=== PATIENT | male | born 1955 | race Caucasian/White ===

== ENCOUNTER 2019-08-13 00:06 | Observation (INO) | payer MEDICARE, SELFPAY ==
[2019-08-13] VITALS (13 sets, daily range): BP systolic 137–180; BP diastolic 73–94; PULSE 64–112; RESP 14–20; TEMP 36.2–36.6; O2SAT 95–100; BMI 26.7
--- NOTE | ~2019-08-13 | XR_ITS ---
EXAMINATION: XR chest 2V DATE: 08/13/2019 00:43 INDICATION: Chest pain and shortness of breath TECHNIQUE: PA and lateral views of the chest were obtained. COMPARISON: Chest radiograph dated 08/21/2012 FINDINGS: The lungs remain clear with no focal airspace opacities, pulmonary edema, pleural effusion or pneumot horax. The cardiomediastinal silhouette is normal. Moderate degenerative skeletal changes in the spin e and right shoulder. There are bridging osteophytes at multiple levels in the spine, consistent with diffuse idiopathic skeletal hyperostosis (DISH). Anterior plate and screw fixation for lower cervica l anterior spinal fusion. IMPRESSION: 1. No acute cardiopulmonary disease. Reviewed, dictated and finalized at location A.
--- NOTE | 2019-08-13 00:13 | ECG_ITS ---
Measurements Intervals [place] Rate: 102 P: 50 DC: 144 QRS: 2 QRSD: 80 T: 40 QT: 346 QTc: 452 Interpretive Statements SINUS TACHYCARDIA VENTRICULAR PREMATURE COMPLEX EARLY PRECORDIAL R/S TRANSITION BASELINE ARTIFACT- I, II, III, AVR, AVL, AVF ABNORMAL ECG Electronically Signed On 08-13-2019 7:37:01 CDT by Yasmani Barbosa D.O.
[2019-08-13 00:31] LABS: Basophils Percent Auto 0.2 % (0.2-1.2); Eosinophils Absolute Auto 0.1 K/mm3 (0-0.3); Eosinophils Percent Auto 0.5 % (0-4.4); Hematocrit 44.4 % (42.0-52.0); Immature Granulocyte Absolute 0.15 K/mm3 (0.00-0.031); Immature Granulocyte Percent A 1.2 % (0-0.5); Lymphocytes Absolute Auto 1.61 K/mm3 (0.9-3.2); Lymphocytes Percent Auto 13.4 % (18.3-44.2); Mean Corpuscular HGB Conc 33.8 g/dl (32-36); Mean Corpuscular Hemoglobin 33.3 pg (26-34); Mean Corpuscular Volume 98.4 fl (80-100); Mean Platelet Volume 9.6 fl (7.4-10.4); Monocytes Absolute Auto 0.7 K/mm3 (0.1-0.6); Monocytes Percent Auto 5.8 % (2.6-8.5); Neutrophils Absolute Auto 9.5 K/mm3 (1.3-6.7); Neutrophils Percent Auto 78.9 % (45.5-73.1); Nucleated Red Blood Cells Perc 0.2 % (0.0-0.2); Platelet Count Result 245 k/mm3 (150-375); Red Blood Count 4.51 M/mm3 (4.6-6.20); Red Cell Distribution Width 15.2 % (11.5-14.5)
[2019-08-13 00:41] LABS: INR 0.9; Prothrombin Time 12.1 Seconds (11.1-14.7)
[2019-08-13 00:42] LABS: Partial Thromboplastin Time 26.6 SECONDS (22.3-36.8)
[2019-08-13 00:43] LABS: Blood Urea Nitrogen 15 mg/dL (9-20); Calcium 9.8 mg/dL (8.4-10.2); Carbon Dioxide 31 mmol/L (22-30); Chloride 101 mmol/L (98-107); Estimated CRCL calculation 72 ml/min; Estimated Glomerular Filt Rate > 60; Glucose 169 mg/dL (75-110); Potassium 3.5 mmol/L (3.4-5.0); Sodium 137 mmol/L (137-145)
[2019-08-13 00:55] LABS: Troponin I 0.016 ng/mL (0.000-0.034)
--- NOTE | 2019-08-13 01:26 | ED.GENADULT ---
HPI - General Adult General Chief complaint: Chest Pain Stated complaint: sob Time Seen by Provider: 08/13/19 00:28 History of Present Illness HPI narrative: Patient is a 64-year-old male who presents the ER with epigastric pain. Reports he laid down to go to bed at 10:30 PM. He then began feeling cramping across the entirety of his upper abdomen that felt like his diaphragm was cramping. Symptoms lasted for about an hour. Reports he got up and felt slightly short of breath. No nausea/vomiting/dizziness. He ate a couple hours prior to symptom onset. He does still have a gallbladder but has never had gallbladder issues. He has been without diarrhea. No alleviating factors. Related Data Home Medications Medication Instructions Recorded Confirmed amlodipine 08/13/19 atorvastatin 08/13/19 08/13/19 meloxicam 08/13/19 tramadol mg 08/13/19 Allergies Allergy/AdvReac Type Severity Reaction Status Date / Time No Known Allergies Allergy Verified 08/13/19 00:11 Review of Systems Review of Systems: All systems reviewed & are unremarkable except as noted in HPI and below Constitutional: Constitutional: Denies chills, Denies fever(s) and Denies weakness ENT: Denies nasal congestion and Denies sore throat Cardiovascular: Cardiovascular: Reports chest pain and Denies radiating jaw, neck or arm pain Respiratory: Respiratory: Denies cough, Reports dyspnea and Denies wheezing Gastrointestinal: Gastrointestinal: Reports abdominal pain, Denies nausea and Denies vomiting Musculoskeletal: Musculoskeletal: Denies back pain Neurologic: Reports numbness (bilateral hands) and Reports weakness (arm heaviness) PMFSH Past Medical History Medical History (Updated 08/13/19 @ 04:22 by Micheal Key MD) HTN (hypertension), benign Hyperlipidemia Surgical History Surgical History (Updated 08/13/19 @ 04:42 by Micheal Key MD) History of appendectomy Previous back surgery Social History Social History (Updated 08/13/19 @ 04:42 by Micheal Key MD) Smoking status: Never smoker Gender identity (if verbalized by the patient): Male Exam Narrative: Exam Narrative: GENERAL: Well-appearing, well-nourished, and in no acute distress. HEAD: Normocephalic, atraumatic. CHEST: Clear to auscultation. No respiratory distress. HEART: Regular rate and rhythm. No murmur heard. Normal peripheral pulses. ABDOMEN: Soft, nontender, nondistended. EXTREMITIES: Normal range of motion. No edema. SKIN: Warm, dry, no rash. NEURO: Alert and oriented x3. PSYCH: Normal mood and affect. Course Course Emergency Course: Slight increase in troponins. Discussed with Dr. Shirley, admit to chest pain center. There is possibly patient has biliary colic but he is nontender and would not necessarily explain increasing troponin level. Vital Signs Vital signs: Vital Signs Temperature 97.2 F L 08/13/19 00:08 Pulse Rate 112 H 08/13/19 00:08 Respiratory Rate 20 08/13/19 00:08 Blood Pressure 180/94 H 08/13/19 00:08 Pulse Oximetry 100 08/13/19 00:08 Temperature 97.2 F L 08/13/19 00:08 Pulse Rate 85 08/13/19 04:38 Respiratory Rate 18 08/13/19 04:38 Blood Pressure 149/92 H 08/13/19 04:38 Pulse Oximetry 97 08/13/19 04:38 Medical Decision Making Vital Signs Vital Signs: Vital Signs Temperature 97.2 F L 08/13/19 00:08 Pulse Rate 112 H 08/13/19 00:08 Respiratory Rate 20 08/13/19 00:08 Blood Pressure 180/94 H 08/13/19 00:08 Pulse Oximetry 100 08/13/19 00:08 Temperature 97.2 F L 08/13/19 00:08 Pulse Rate 85 08/13/19 04:38 Respiratory Rate 18 08/13/19 04:38 Blood Pressure 149/92 H 08/13/19 04:38 Pulse Oximetry 97 08/13/19 04:38 Lab Data Result diagrams: 08/13/19 00:23 08/13/19 00:23 Labs: Lab Results 08/13/19 08/13/19 08/13/19 Range/Units 00:23 00:23 00:23 WBC 12.0 H (4.5-10.0) K/mm3 RBC 4.51 L (4.6-6.20) M/mm3
[2019-08-13 03:30] LABS: Add Urine Microscopic? YES; Amorphous Sediment Urine Few; Appearance Urine Cloudy (Clear); Bacteria Urine Trace /hpf; Bilirubin Urine Negative (Negative); Blood Urine Negative (Negative); Color Urine Yellow (Yellow); Glucose Urine UA Negative (Negative); Ketones Urine Negative (Negative); Leukocyte Esterase Ur Negative LEU/UL (Negative); Mucus Urine Rare /lpf; Nitrate Urine Negative (Negative); Protein Urine Negative (Negative); Specific Grav Ur 1.012 (1.001-1.035); Urobilinogen Urine Negative mg/dL (<2.0)
--- NOTE | 2019-08-13 04:40 | PC.NURSE ---
aspirin not given to pt pt took two full strength aspirin banquet captain provider aware
--- NOTE | 2019-08-13 06:15 | ECG_ITS ---
Measurements Intervals [place] Rate: 66 P: 88 IA: 144 QRS: -11 QRSD: 81 T: 31 QT: 377 QTc: 396 Interpretive Statements SINUS RHYTHM EARLY PRECORDIAL R/S TRANSITION BASELINE ARTIFACT- I, II, III, AVR, AVL, AVF BORDERLINE ECG Electronically Signed On 08-13-2019 7:40:27 CDT by Yasmani Barbosa D.O.
[2019-08-13 06:52] LABS: Troponin I 0.023 ng/mL (0.000-0.034)
--- NOTE | 2019-08-13 12:48 | PM.SD ---
Same Day Admit/Disch: HPI History of Present Illness Chief complaint: chest pain Narrative: Ross Victoria is a 64 year old male with a h/o HTN, hyperlidemia, smoking hx and pre-Dm, who was admitted for observatin for chest/epigastric pain. Mr. Victoria injured his back recently and has been using his abdominal muscles more. Last night after a normal day while in bed he experienced a cramping discomfort across his upper abdomen, just under and across his rib cage. He said it felt like his muscles tightened up and wouldn't let go like a muscle cramp; he couldn't get comfortable. It was non positional, nonpleuritic, but mild tenderness was noted. He has a little heartburn relieved w/ TUMS. After a while he felt a little SOB and sweaty and decided he should get this checked out. The discomfort lasted 1-1.5 hours and resolved in the ER. Because there was a slight change in troponin, he was admitted for observation. There was no diarrhea and no further problems. Normally he can exert w/o any problems. [facility] Past Medical History Medical History (Updated 08/13/19 @ 13:11 by Benita Shirley MD) Cataracts, bilateral HTN (hypertension), benign Hyperlipidemia Macular degeneration Pre-diabetes Surgical History Surgical History (Updated 08/13/19 @ 04:42 by Micheal Key MD) History of appendectomy Previous back surgery Family History Family History (Updated 08/13/19 @ 12:58 by Benita Shirley MD) Mother Myocardial infarct of complications of MD age 77 Hypertension Sibling Hypertension Sibling Hypertension Father No problems noted. Social History Social History (Updated 08/13/19 @ 12:58 by Benita Shirley MD) Social History: Single, retired, no kids. Smokes 0-10 cigarettes daily. Smoking status: Light tobacco smoker Tobacco type: cigarettes Alcohol intake: current Alcohol use details: Infrequent alcohol use Substance use: never Gender identity (if verbalized by the patient): Male Same Day Admit/Disch: Med Pre-admit Medications Home Medications Medication Instructions Recorded Confirmed Type amlodipine 5 mg PO DAILY 08/13/19 08/13/19 History atorvastatin 20 mg PO HS 08/13/19 08/13/19 History gabapentin 400 mg PO QNOON 08/13/19 08/13/19 History gabapentin 800 mg PO BID 08/13/19 08/13/19 History meloxicam 15 mg PO QNOON 08/13/19 08/13/19 History tramadol 50 mg PO Q4H PRN 08/13/19 08/13/19 History Exam Const: General: comfortable and no acute distress HENMT: Mouth: Yes moist mucous membranes Eyes: EOM: EOMs intact bilaterally Neck: Neck: supple and no JVD Thyroid: thyroid normal Carotids: no bruits Resp: Effort & Inspection: normal respiratory effort Auscultation: clear to auscultation bilaterally Cardio: Rate: regular rate Rhythm: regular rhythm Heart sounds: no murmurs GI: Inspection: non-distended Auscultation: normal bowel sounds Other: Soft and nontender, no hepatosplenomegaly Skin: General skin exam: normal color and no rashes or lesions noted Neuro: Speech: normal speech Motor exam (neuro): Normal motor muscle tone present throughout Extrem: General: no pedal edema Other: Intact pedal pulses although the right dorsalis pedis is decreased Psych: Mental Status: mental status grossly normal Affect: normal affect DS: Data Data Completed and Pending Labs on day of discharge: Labs from last 24 hours 08/13/19 08/13/19 08/13/19 06:03 03:16 03:16 WBC RBC Hgb Hct MCV MCH MCHC RDW Plt Count MPV Immature Gran % (Auto) Neut % (Auto) Lymph % (Auto) [place] % (Auto) Eos % (Auto) Baso % (Auto) Lymph # (Auto) [place] # (Auto) Eos # (Auto) Baso # (Auto) Abs Immat Gran (auto) Absolute Neuts (auto) Absolute Nucleated RBC Nucleated RBC % PT INR APTT Sodium Potassium Chloride Carbon Dioxide BUN Creatinine
== END 2019-08-13 13:45 | disposition home or self-care (01) ==
LOC: ANHED 00:45 → ANHCPC 04:18
PROVIDERS: Admitting Provider Internal Medicine Cardiovascular Disease; Emergency Provider Emergency Medicine; Visit Provider Internal Medicine Cardiovascular Disease
DX: R10.13 Epigastric pain (principal); R07.9 Chest pain, unspecified; R73.03 Prediabetes; I10 Essential (primary) hypertension; E78.5 Hyperlipidemia, unspecified; R06.02 Shortness of breath; F17.210 Nicotine dependence, cigarettes, uncomplicated
CPT/HCPCS: 36415; 71046; 80048; 81001; 84484; 85025; 85610; 85730; 93005; 99285; G0378